=== PATIENT | female | born 1995 | race Caucasian/White ===

== ENCOUNTER 2018-08-03 18:11 | Emergency (ER) | payer OTHER ==
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
[2018-08-03 18:22] VITALS: BP 134/80
[2018-08-03] MEDS ORDERED: IBUPROFEN PO ONE (21:21)
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
== END 2018-08-03 22:30 | disposition home or self-care (01) ==
LOC: ED 18:11
DX: M79.631 Pain in right forearm (principal); M79.661 Pain in right lower leg
CPT/HCPCS: 99282

== ENCOUNTER 2019-07-30 11:04 | Emergency (ER) | payer MEDICAID, OTHER ==
[2019-07-30 11:13] VITALS: BP 131/68
--- NOTE | 2019-07-30 12:56 | Emergency Department Report ---
ED Fall HPI - General Chief Complaint: Fall Stated Complaint: FALL INJURY/RT SIDE PAIN Time Seen by Provider: 07/30/19 12:48 Source: patient Mode of arrival: Ambulatory - History of Present Illness Initial Comments: This is a 23-year-old -[place] female who presents to the emergency room status post ground-level fall 2 days ago. Patient reports left lower abdomen pain. States she is 8 weeks with no [facility] REPRESENTATIVE follow-up. Last menstrual. May 31, 2019, 1 para 0. She denies loss of consciousness, vaginal bleeding or discharge, urinary frequency, urgency, or dysuria. MD Complaint: fall Onset/Timin -: days(s) Fall From: standing Fall Witnessed: yes, by family Place Fall Occurred: street Loss of Consciousness: none Prolonged Down Time?: no Symptoms Prior to Fall: none Location: abdomen Severity: moderate Severity scale (0 -10): 6 Quality: aching Context: tripped/slipped Associated Symptoms: abdominal pain - Related Data Previous Rx's Medication Instructions Recorded Last Taken Type Ibuprofen [Ibuprofen 800] 800 mg PO Q6HR PRN #10 tablet 08/03/18 Unknown Rx 21/Iron Fu/Folic Acid 1 each PO DAILY #30 tablet 07/30/19 Unknown Rx [ Complete Caplet] Allergies Allergy/AdvReac Type Severity Reaction Status Date / Time No Known Allergies Allergy Unverified 08/03/18 18:21 ED Review of Systems ROS: Stated complaint: FALL INJURY/RT SIDE PAIN Other details as noted in HPI Constitutional: denies: chills, fever Respiratory: denies: cough, shortness of breath, wheezing Cardiovascular: denies: chest pain, palpitations Gastrointestinal: abdominal pain. denies: nausea, diarrhea Genitourinary: denies: urgency, dysuria, discharge Skin: denies: rash, lesions Neurological: denies: headache, weakness, paresthesias Psychiatric: denies: anxiety, depression ED Past Medical Hx - Past Medical History Previous Medical History?: No - Surgical History Past Surgical History?: No - Social History Smoking Status: Never Smoker Substance Use Type: None - Medications Home Medications: Home Medications Medication Instructions Recorded Confirmed Last Taken Type Ibuprofen [Ibuprofen 800] 800 mg PO Q6HR PRN #10 tablet 08/03/18 Unknown Rx 21/Iron Fu/Folic Acid 1 each PO DAILY #30 tablet 07/30/19 Unknown Rx [ Complete Caplet] ED Physical Exam - General Limitations: No Limitations General appearance: alert, in no apparent distress - Respiratory Respiratory exam: Present: normal lung sounds bilaterally. Absent: respiratory distress - Cardiovascular Cardiovascular Exam: Present: regular rate, normal rhythm. Absent: systolic murmur, diastolic murmur, rubs, gallop - GI/Abdominal GI/Abdominal exam: Present: soft, tenderness (Left lower quadrant or right lower quadrant), normal bowel sounds. Absent: distended, guarding, rebound, rigid - Extremities Exam Extremities exam: Present: normal inspection - Back Exam Back exam: Present: full ROM. Absent: CVA tenderness (R), CVA tenderness (L), muscle spasm, paraspinal tenderness, vertebral tenderness, rash noted - Neurological Exam Neurological exam: Present: alert, oriented X3, normal gait - Psychiatric Psychiatric exam: Present: normal affect, normal mood - Skin Skin exam: Present: warm, dry, intact, normal color. Absent: rash ED Course Vital Signs 07/30/19 11:09 Temperature 98.1 F Pulse Rate 104 H Respiratory 18 Rate Blood Pressure 131/68 O2 Sat by Pulse 99 Oximetry ED Medical Decision Making - Radiology Data Radiology results: report reviewed ULTRASOUND OBSTETRIC INDICATION: 8 weeks, 4 days with abdominal pain after fall. TECHNIQUE: Transabdominal and Transvaginal. COMPARISON: None available. FINDINGS: GESTATIONAL SAC: Well-defined oval shape and intrauterine in location. YOLK SAC: No significant abnormality. EMBRYO/FETUS: No significant abnormality. - [place]-Rump Length = 0.56 cm = 6 weeks, 2 day(s). - Heart Rate = 114 beats per minute. ADNEXA: No significant abnormality. FREE FLUID: None. ADDITIONAL FINDINGS: A suspected small area of subchorionic hemorrhage is seen measuring 8 x 3 mm. IMPRESSION: 1. Single, living intrauterine with estimated sonographic age of 6 weeks, 2 day(s). 2. Suspected small area of subchorionic hemorrhage. - Medical Decision Making This is a 18-year-old female that presents with left lower quadrant pain status post fall. Vitals are stable and patient in no acute distress. Mild tenderness to right lower quadrant and left lower quadrant on exam. Denies vaginal bleeding/discharge, hematuria, or UTI symptoms. Work-up: Urinalysis, urine test, and OB ultrasound. Urinalysis small blood, hCG qualitative positive. OB ultrasound findings Single, living intrauterine with estimated sonographic age of 6 weeks, 2 day(s). Suspected small area of subchorionic hemorrhage. The blood on urinalysis possibly secondary small subchorionic hemorrhage. Referral to [facility] SERVICES REPRESENTATIVE for continued care. Start vitamins. Patient discharged home stable with strict return instructions. Critical care attestation.: If time is entered above; I have spent that time in minutes in the direct care of this critically ill patient, excluding procedure time. ED Disposition Clinical Impression: Abdominal pain affecting , Fall (on)(from) sidewalk curb, initial encounter Subchorionic hemorrhage in first trimester Qualifiers: Fetus number: single or unspecified fetus Qualified Code(s): O41.8X10 - Other specified disorders of amniotic fluid and membranes, first trimester, not applicable or unspecified; O46.8X1 - Other antepartum hemorrhage, first trimester Disposition: TO HOME OR SELFCARE Is pt being admited?: No Condition: Stable Instructions: Fall Prevention (ED) Additional Instructions: You will need to follow up with an MEMBER SERVICES REPRESENTATIVE or return to the emergency room if you notice vaginal bleeding. Start taking vitamins daily. Follow-up with an MEMBER SERVICES REPRESENTATIVE from the list provided below. Return to the emergency room if you experience worsening abdominal pain, vaginal bleeding, or back pain. Prescriptions: 21/Iron Fu/Folic Acid [ Complete Caplet] 1 each PO DAILY #30 tablet Referrals: [facility] [Provider Group] - 3-5 Days [facility] [Provider Group] - 3-5 Days [facility] [Provider Group] - 3-5 Days Time of Disposition: 14:37
[2019-07-30 14:13] LABS: HCG Qualitative,Urine Positive (Negative)
[2019-07-30 14:17] LABS: Bilirubin,Urine NEG (Negative); Blood,Urine MOD (Negative); Color,Urine Yellow (Yellow); Mucus,Urine FEW /HPF; Protein,Urine <15 mg/dL mg/dL (Negative); Urobilinogen,Urine < 2.0 mg/dL (<2.0)
--- NOTE | 2019-07-30 14:23 | Ultrasound Report ---
ULTRASOUND OBSTETRIC INDICATION: 8 weeks, 4 days with abdominal pain after fall. TECHNIQUE: Transabdominal and Transvaginal. COMPARISON: None available. FINDINGS: GESTATIONAL SAC: Well-defined oval shape and intrauterine in location. YOLK SAC: No significant abnormality. EMBRYO/FETUS: No significant abnormality. - [place]-Rump Length = 0.56 cm = 6 weeks, 2 day(s). - Heart Rate = 114 beats per minute. ADNEXA: No significant abnormality. FREE FLUID: None. ADDITIONAL FINDINGS: A suspected small area of subchorionic hemorrhage is seen measuring 8 x 3 mm. IMPRESSION: 1. Single, living intrauterine with estimated sonographic age of 6 weeks, 2 day(s). 2. Suspected small area of subchorionic hemorrhage. Signer Name: Sebastián Stanton MD Signed: 07/30/2019 2:19 PM Workstation Name: [id number]
--- NOTE | 2019-07-30 14:23 | Ultrasound Report ---
ULTRASOUND OBSTETRIC INDICATION: 8 weeks, 4 days with abdominal pain after fall. TECHNIQUE: Transabdominal and Transvaginal. COMPARISON: None available. FINDINGS: GESTATIONAL SAC: Well-defined oval shape and intrauterine in location. YOLK SAC: No significant abnormality. EMBRYO/FETUS: No significant abnormality. - [place]-Rump Length = 0.56 cm = 6 weeks, 2 day(s). - Heart Rate = 114 beats per minute. ADNEXA: No significant abnormality. FREE FLUID: None. ADDITIONAL FINDINGS: A suspected small area of subchorionic hemorrhage is seen measuring 8 x 3 mm. IMPRESSION: 1. Single, living intrauterine with estimated sonographic age of 6 weeks, 2 day(s). 2. Suspected small area of subchorionic hemorrhage. Signer Name: Sebastián Stanton MD Signed: 07/30/2019 2:19 PM Workstation Name: [id number]
== END 2019-07-30 15:32 | disposition home or self-care (01) ==
LOC: ED 11:04
DX: O20.8 Other hemorrhage in early pregnancy (principal); O26.891 Other specified pregnancy related conditions, first trimester; R10.32 Left lower quadrant pain; Z3A.08 8 weeks gestation of pregnancy; Z79.1 Long term (current) use of non-steroidal anti-inflammatories (NSAID); Z79.899 Other long term (current) drug therapy; W10.1XXA Fall (on)(from) sidewalk curb, initial encounter; Y93.89 Activity, other specified; Y92.410 Unspecified street and highway as the place of occurrence of the external cause; Y99.8 Other external cause status
CPT/HCPCS: 76801; 76817; 81001; 81025